=== PATIENT | male | born 1970 | race African-American/Black ===

== ENCOUNTER 2021-03-05 09:13 | Outpatient (CLI) | payer BC, SELFPAY ==
--- NOTE | 2021-03-05 12:00 | NEURO_ITS ---
Impression: # Complains of numbness of hands. # Mild evolving Carpal Tunnel Syndrome. # Bilateral ulnar neuropathy across the elbows. # Normal needle/EMG exam. Nerve Conduction Studies Anti Sensory Summary Table Stim Site NR Peak (ms) P-T Amp (?V) Site1 Site2 Delta-P (ms) Dist (cm) Shady (m/s) Left Median Anti Sensory (2-3nd Digit) Wrist 4.5 24.2 Wrist 2-3nd Digit 4.5 14.0 31 Wrist 4.7 18.9 Wrist 2-3nd Digit 4.5 14.0 31 Right Median Anti Sensory (2-3nd Digit) Wrist 3.8 22.2 Wrist 2-3nd Digit 3.8 14.0 37 Wrist 4.0 24.9 Wrist 2-3nd Digit 3.8 14.0 37 Left Radial Anti Sensory (Base 1st Digit) Wrist 2.4 24.0 Wrist Base 1st Digit 2.4 0.0 Right Radial Anti Sensory (Base 1st Digit) Wrist 2.3 15.2 Wrist Base 1st Digit 2.3 0.0 Left Ulnar Anti Sensory (5th Digit) Wrist 2.9 17.7 Wrist 5th Digit 2.9 14.0 48 Right Ulnar Anti Sensory (5th Digit) Wrist 2.8 26.9 Wrist 5th Digit 2.8 14.0 50 Motor Summary Table Stim Site NR Onset (ms) O-P Amp (mV) Site1 Site2 Delta-0 (ms) Dist (cm) Shady (m/s) Left Median Motor (Abd Poll Brev) Wrist 4.2 8.5 Elbow Wrist 5.4 31.0 57 Elbow 9.6 7.8 Right Median Motor (Abd Poll Brev) Wrist 4.4 5.9 Elbow Wrist 5.3 30.0 57 Elbow 9.7 6.3 Left Ulnar Motor (Abd Dig Minimi) Wrist 2.8 4.2 A Elbow Wrist 6.3 33.0 52 A Elbow 9.1 4.0 B Elbow Wrist 4.7 27.0 57 B Elbow 7.5 4.8 Right Ulnar Motor (Abd Dig Minimi) Wrist 3.0 7.1 A Elbow Wrist 6.3 31.0 49 A Elbow 9.3 6.5 B Elbow Wrist 4.0 23.0 58 B Elbow 7.0 4.5 F Wave Studies NR F-Lat (ms) L-R F-Lat (ms) Left Median (Mrkrs) (Abd Poll Brev) 30.43 1.29 Right Median (Mrkrs) (Abd Poll Brev) 29.14 1.29 Left Ulnar (Mrkrs) (Abd Dig Min) 30.90 1.46 Right Ulnar (Mrkrs) (Abd Dig Min) 29.44 1.46 EMG Side Muscle Nerve Root Ins Act Fibs Amp Dur Recrt Comment Right 1stDorInt Ulnar C8-T1 Nml Nml Nml Nml Nml Right Ext Indicis Radial (Post Int) C7-8 Nml Nml Nml Nml Nml Right Ext Digitorum Radial (Post Int) C7-8 Nml Nml Nml Nml Nml Right BrachioRad Radial C5-6 Nml Nml Nml Nml Nml Right PronatorTeres Median C6-7 Nml Nml Nml Nml Nml Right Abd Poll Brev Median C8-T1 Nml Nml Nml Nml Nml Left 1stDorInt Ulnar C8-T1 Nml Nml Nml Nml Nml Left Ext Indicis Radial (Post Int) C7-8 Nml Nml Nml Nml Nml Left Ext Digitorum Radial (Post Int) C7-8 Nml Nml Nml Nml Nml Left BrachioRad Radial C5-6 Nml Nml Nml Nml Nml Left PronatorTeres Median C6-7 Nml Nml Nml Nml Nml Left Abd Poll Brev Median C8-T1 Nml Nml Nml Nml Nml MTDD
== END 2021-03-05 09:14 | disposition home or self-care (01) ==
LOC: ANHNEURO 09:17
PROVIDERS: PCP Internal Medicine; Visit Provider Internal Medicine
DX: G56.03 Carpal tunnel syndrome, bilateral upper limbs (principal); G62.9 Polyneuropathy, unspecified
CPT/HCPCS: 95886; 95911